=== PATIENT | female | born 1960 | race Caucasian/White ===

== ENCOUNTER 2020-10-29 22:45 | Emergency (ER) | payer SELFPAY ==
[~2020-10-29] VITALS: Ht 157.5 cm; Wt 49.9 kg
--- NOTE | 2020-10-29 22:52 | NUR ---
pt bibra c/o suicidal ideation. Per ems, pt called suicide hotline and the hotline called EMS. Pt aaox4 breathing evenly and unlabored. Pt admits to drinking 2 glasses of wine 2hours [employer]. Pt attached to monitor and pox. Pt skin warm, dry, and intact. sitter at bedside. Pt given blanket and call light within reach.
--- NOTE | 2020-10-29 23:34 | NUR ---
covid swab sent to lab
--- NOTE | 2020-10-29 23:35 | NUR ---
lab at bedside
[2020-10-29 23:47] LABS: BASOPHILS % (AUTO) 0.6 % (0.0-2.0); EOSINOPHILS % (AUTO) 2.3 % (0.0-6.0); HEMATOCRIT 43 % (33-45); HEMOGLOBIN 13.9 g/dL (11.5-14.8); LYMPHOCYTES # (AUTO) 3.7 /CMM (0.8-4.8); LYMPHOCYTES % (AUTO) 48.3 % (20.0-44.0); MEAN CORPUSCULAR HGB CONC 33 g/dl (31.0-36.0); MEAN CORPUSCULAR VOLUME 96 fL (82-100); MONOCYTES # (AUTO) 0.5 /CMM (0.1-1.30); NEUTROPHILS # (AUTO) 3.3 /CMM (1.8-8.9); NEUTROPHILS % (AUTO) 42.8 % (43.0-81.0); PLATELET COUNT (AUTO) 207 /CMM (150-450); RED BLOOD CELL COUNT(AUTO) 4.45 MIL/uL (4.0-5.2); WHITE BLOOD COUNT (AUTO) 7.7 K/uL (4.3-11.0)
[2020-10-30 00:02] LABS: ALBUMIN 4.1 g/dL (3.4-5.0); BILIRUBIN,DIRECT 0.1 mg/dL (0.0-0.2); BILIRUBIN,TOTAL 0.3 mg/dL (0.2-1.0); CALCIUM, SERUM 8.8 mg/dL (8.5-10.1); CREATININE 0.7 mg/dL (0.6-1.3); TOTAL PROTEIN, SERUM 7.7 g/dL (6.4-8.2)
--- NOTE | 2020-10-30 00:51 | NUR ---
CALL FROM LAB. RAPID COVID NEGATIVE.
[2020-10-30 03:33] LABS: BILIRUBIN,URINE Negative (NEGATIVE); COLOR,URINE YELLOW (YELLOW); LEUKOCYTE ESTERASE ,URINE Negative (NEGATIVE); NITRITE, URINE Negative (NEGATIVE); PH,URINE 5.5 (5.0-8.0); PROTEIN,URINE Negative (NEGATIVE); UGLUCOSE Negative (NEGATIVE); UROBILINOGEN,URINE 0.2 EU/dL (0.2)
[2020-10-30] MEDS ORDERED: ACETAMINOPHEN ES 500 MG TABLET PO ONE (05:00)
[2020-10-30] MEDS ORDERED: ACETAMINOPHEN ES 500 MG TABLET ONE (05:17)
--- NOTE | 2020-10-30 06:14 | NUR ---
pt is awake, alert and oriented. amulatory with steady gaits. willing to leave the ER. po challenge tolerated well. no s/s of aspiration. no N/V. denied SI/ HI. er doctor made aware. pt is medically stable for discharge per MD. Patient discharged to home in stable condition. Written and verbal after care instructions given. Patient verbalizes understanding of instruction.
--- NOTE | 2020-10-30 06:27 | NUR ---
Patient discharged to home in stable condition. Written and verbal after care instructions given. Patient verbalizes understanding of instruction. Pt ambulatory with a steady gait
[2020-10-30 06:36] VITALS: BP 130/88
== END 2020-10-30 06:27 | disposition home or self-care (01) ==
LOC: ER 22:47
DX: R45.851 Suicidal ideations (principal); Z20.822 Contact with and (suspected) exposure to COVID-19
CPT/HCPCS: 36415; 80048; 80076; 80299; 80307; 80320; 81003; 85025; 87426; 99285; C9803; G0480

== ENCOUNTER 2023-07-24 19:33 | Emergency (ER) | payer BC, OTHER ==
[~2023-07-24] VITALS: Ht 165.1 cm; Wt 61.2 kg
[2023-07-24] MEDS ORDERED: HALOPERIDOL LACTATE INJ 5 MG/ML VIAL IM ONE (23:30)
[2023-07-25 03:13] VITALS: BP 110/78; TEMP 98; O2SAT 99
== END 2023-07-25 03:14 | disposition home or self-care (01) ==
LOC: ER 19:52
DX: F19.10 Other psychoactive substance abuse, uncomplicated (principal); I10 Essential (primary) hypertension; F41.9 Anxiety disorder, unspecified; Z60.2 Problems related to living alone
CPT/HCPCS: 82962-TC

== ENCOUNTER 2023-11-09 22:49 | Emergency (ER) | payer BC, OTHER ==
[~2023-11-09] VITALS: Ht 165.1 cm; Wt 68.0 kg
[2023-11-09 22:57] VITALS: BP 130/77; TEMP 98.4; O2SAT 98
[2023-11-09] MEDS ORDERED: diphenhydrAMINE HCL 50 MG/ML VIAL ONE (23:09)
[2023-11-09] MEDS ORDERED: LORAZEPAM INJ 2 MG/ML VIAL ONE (23:10)
[2023-11-09] MEDS: LORAZEPAM INJ 2 MG/ML VIAL IM ONE (23:14)
[2023-11-09] MEDS: diphenhydrAMINE HCL 50 MG/ML VIAL IM ONE (23:14)
== END 2023-11-10 03:12 | disposition left against medical advice (07) ==
LOC: ER 22:50
DX: T42.6X2A Poisoning by other antiepileptic and sedative-hypnotic drugs, intentional self-harm, initial encounter (principal); R45.851 Suicidal ideations; F41.9 Anxiety disorder, unspecified; F90.9 Attention-deficit hyperactivity disorder, unspecified type; F10.10 Alcohol abuse, uncomplicated; F19.10 Other psychoactive substance abuse, uncomplicated; I10 Essential (primary) hypertension; Z60.2 Problems related to living alone; Y92.89 Other specified places as the place of occurrence of the external cause; Y90.9 Presence of alcohol in blood, level not specified
CPT/HCPCS: 99284; 96372 ×2; J2060; J1200

== ENCOUNTER 2023-12-04 01:12 | Emergency (ER) | payer OTHER ==
[~2023-12-04] VITALS: Ht 167.6 cm; Wt 65.8 kg
[2023-12-04 01:12] VITALS: BP 121/76; TEMP 98.1; O2SAT 98
== END 2023-12-04 02:00 | disposition home or self-care (01) ==
LOC: ER 01:23
DX: T40.5X1A Poisoning by cocaine, accidental (unintentional), initial encounter (principal); F41.9 Anxiety disorder, unspecified; Z53.21 Procedure and treatment not carried out due to patient leaving prior to being seen by health care provider; Y92.89 Other specified places as the place of occurrence of the external cause